=== PATIENT | male | born 1935 | race Caucasian/White ===

== ENCOUNTER → 2020-12-27 12:55 | Outpatient (BNVA) | payer MEDICARE, OTHER, SELFPAY | PROVIDERS: Visit Provider Urology | DX: N40.0 Benign prostatic hyperplasia without lower urinary tract symptoms (principal); N40.1 Benign prostatic hyperplasia with lower urinary tract symptoms; R33.9 Retention of urine, unspecified; N39.0 Urinary tract infection, site not specified | CPT/HCPCS: 51798; 99212 ==

== ENCOUNTER → 2021-07-17 09:56 | Outpatient (BNVA) | payer MEDICARE, OTHER, SELFPAY | PROVIDERS: Visit Provider Urology | DX: Z13.89 Encounter for screening for other disorder (principal) | CPT/HCPCS: Q3014 ==

== ENCOUNTER → 2022-03-12 11:58 | Outpatient (BNVA) | payer MEDICARE, OTHER, SELFPAY | PROVIDERS: PCP Preventive Medicine Public Health & General Preventive Medicine; Visit Provider Urology | DX: N39.0 Urinary tract infection, site not specified (principal); N40.0 Benign prostatic hyperplasia without lower urinary tract symptoms | CPT/HCPCS: Q3014 ==

== ENCOUNTER → 2022-09-12 10:12 | Outpatient (BNVA) | payer MEDICARE, OTHER, SELFPAY | PROVIDERS: PCP Preventive Medicine Public Health & General Preventive Medicine; Visit Provider Urology | DX: N40.1 Benign prostatic hyperplasia with lower urinary tract symptoms (principal); R33.8 Other retention of urine; N39.0 Urinary tract infection, site not specified | CPT/HCPCS: Q3014 ==

== ENCOUNTER 2023-03-24 13:16 | Outpatient (AMB) | payer MEDICARE, OTHER, SELFPAY ==
--- NOTE | 2023-03-24 13:16 | A.OFFVIS_ITS ---
Intake Intake Visit Reasons: 6m follow up Intake Note: Patient is present for Telephone follow up Urology Med: none Antibiotic Allergy: Levofloxacin Blood Thinner: Eliquis Pharmacy: [facility] Allergies amlodipine Allergy (Unknown, Verified 03/24/23 13:17) Unknown levofloxacin [Levaquin] Allergy (Unknown, Verified 03/24/23 13:17) Unknown losartan Allergy (Unknown, Verified 03/24/23 13:17) unknown cozaar Allergy (Unknown, Uncoded 03/24/23 13:17) unknown norvasc Allergy (Unknown, Uncoded 03/24/23 13:17) unknown sensitivity to med. tape Allergy (Unknown, Uncoded 03/24/23 13:17) unknown xarelto Allergy (Unknown, Uncoded 03/24/23 13:17) unknown Medication List - Last Reconciled 03/24/23 by David Greene MD allopurinol 100 mg PO DAILY apixaban (Eliquis) 5 mg PO BID methylprednisolone 4 mg PO DAILY metoprolol tartrate 25 mg PO DAILY midodrine 2.5 mg PO BID sulfamethoxazole-trimethoprim 400-80 mg (Bactrim) 1 tab PO BEDTIME 90 days torsemide 5 mg PO DAILY HPI HPI Comments History of Present Illness Details Reg is a pleasant male. He is a patient of Dr. Barbosa. 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 [facility] Medical History Bladder dysfunction BPH (benign prostatic hyperplasia) Diabetes mellitus Enlarged prostate without lower urinary tract symptoms (luts) GERD (gastroesophageal reflux disease) Hyperlipidemia Hypothyroidism Surgical History History of surgery Assessment & Plan Assessment & Plan (1) Recurrent UTI (urinary tract infection): Code(s): N39.0 - Urinary tract infection, site not specified (2) Incomplete emptying of bladder due to benign prostatic hyperplasia: Code(s): N40.1 - Benign prostatic hyperplasia with lower urinary tract symptoms; R33.9 - Retention of urine, unspecified (3) BPH (benign prostatic hyperplasia): Code(s): N40.0 - Benign prostatic hyperplasia without lower urinary tract symptoms Plan Given UTI medication to use on demand Continue suppression Medications: New cephalexin 500 mg PO BID 7 days 14 caps 0RF N39.0 - Urinary tract infection, site not specified Refilled sulfamethoxazole-trimethoprim 400-80 mg (Bactrim) 1 tab PO BEDTIME 90 days 90 tabs 1RF N39.0 - Urinary tract infection, site not specified Patient Instructions: Imaging studies, laboratory and physical exam results were discussed and reviewed in detail. No major barriers to patient understanding were identified. An opportunity to ask questions regarding the treatment plan was provided. All questions were answered. The patient expressed understanding and agreement with the above treatment plan. The patient is aware they should contact our office by phone for worsening of their current condition or the appearance of new urologic symptoms. Compliance is encouraged with any medications and followup testing that is ordered. It is a privilege to participate in the urologic care of your patient. If you have any questions or concerns regarding treatment for the above conditions, or other urologic issues, please do not hesitate to contact me. The office telephone contact is [phone]. This note is constructed using voice recognition software. While every effort has been made to ensure accuracy health services information specialist errors may have been included. Yours sincerely, Dr David Greene MD, [facility] - Urology Providers of Expert, Compassionate Care for the Genitourinary System Telehealth Telehealth Location of provider rendering services: practice address Location of patient: address on file Patient Identification confirmed using: Name, : Yes Telehealth method: video Patient verbally consented to treatment: Yes Patient verbally consented to billing insurance company: Yes Patient informed of any privacy concerns related to visit: Yes Coding Level of Care Code Tele Est Pt Level 4 (79404) Diagnoses Recurrent UTI (urinary tract infection) N39.0 Incomplete emptying of bladder due to benign prostatic hyperplasia N40.1; R33.9 BPH (benign prostatic hyperplasia) N40.0
== END 2023-03-24 16:08 | disposition home or self-care (01) ==
LOC: HO.HUSH 13:16
PROVIDERS: PCP Preventive Medicine Public Health & General Preventive Medicine; Visit Provider Urology
DX: N39.0 Urinary tract infection, site not specified (principal); N40.1 Benign prostatic hyperplasia with lower urinary tract symptoms; R33.9 Retention of urine, unspecified; N40.0 Benign prostatic hyperplasia without lower urinary tract symptoms
CPT/HCPCS: 99214

== ENCOUNTER → 2023-03-24 13:16 | Outpatient (BNVA) | payer MEDICARE, OTHER, SELFPAY | PROVIDERS: PCP Preventive Medicine Public Health & General Preventive Medicine; Visit Provider Urology ==

== ENCOUNTER 2023-06-24 15:04 | Outpatient (AMB) | payer MEDICARE, OTHER, SELFPAY ==
--- NOTE | 2023-06-24 15:04 | MHC.OFFVIS ---
Intake Intake Visit Reasons: Med review- follow up Intake Note: Patient is Present for Telephone Follow Up For Urology Med: None Antibiotic Allergy: Levofloxacin, Blood Thinner: Eliquis Allergies amlodipine Allergy (Unknown, Verified 06/24/23 15:05) Unknown levofloxacin [Levaquin] Allergy (Unknown, Verified 06/24/23 15:05) Unknown losartan Allergy (Unknown, Verified 06/24/23 15:05) unknown cozaar Allergy (Unknown, Uncoded 06/24/23 15:05) unknown norvasc Allergy (Unknown, Uncoded 06/24/23 15:05) unknown sensitivity to med. tape Allergy (Unknown, Uncoded 06/24/23 15:05) unknown xarelto Allergy (Unknown, Uncoded 06/24/23 15:05) unknown Medication List - Last Reconciled 06/24/23 by David Greene MD allopurinol 100 mg PO DAILY apixaban (Eliquis) 5 mg PO BID cephalexin 500 mg PO BID 7 days methylprednisolone 4 mg PO DAILY metoprolol tartrate 25 mg PO DAILY midodrine 2.5 mg PO BID sulfamethoxazole-trimethoprim 400-80 mg (Bactrim) 1 tab PO BEDTIME 90 days torsemide 5 mg PO DAILY HPI HPI Comments History of Present Illness Details Reg is a pleasant male. He is a patient of Dr. Barbosa. He is seen for the following urologic conditions - BPH - recurring UTI Telemedicine evaluation 15 minute consultation [employer]! toya Video attempted Discussion with daughter Encouraged fluids Has dark fluid Occasional UTI 2x in past 6 months Uses daily Bactrim suppression Did respond well to Keflex when in [place] He is difficult to transport and they live in [place] so his prefers a tele visit when possible Lower urinary tract symptoms - detrusor hyperactivity with impaired contractility Prior laser prostatectomy Has been on Bactrim suppression due to constant 200 cc postvoid residual Postvoid residual in line with prior numbers Uses tropsium when they travel for urge frequency Has done well the last 6 months Continue to follow Prescriptions provided They split time between [place] and [place]. [facility] Medical History BPH (benign prostatic hyperplasia) Bladder dysfunction GERD (gastroesophageal reflux disease) Hypothyroidism Hyperlipidemia Diabetes mellitus Enlarged prostate without lower urinary tract symptoms (luts) Surgical History History of surgery Review of Systems Const All systems reviewed & are unremarkable except as noted in HPI and below Reports no additional complaints Resp Reports no additional complaints GI Reports no additional complaints Reports as per HPI Musc Reports no additional complaints Physical Exam Telemedicine evaluation Appropriate responses Regular breathing rate and rhythm HEENT Head: Yes normal to inspection Ears: hearing grossly normal bilaterally Eyes General: appearance normal, both eyes and all related structures Neck Neck: Yes normal visual inspection Chest Chest palpation & inspection: normal inspection of the chest Resp Effort & Inspection: normal respiratory effort and able to speak in complete sentences Assessment & Plan Assessment & Plan (1) Recurrent UTI (urinary tract infection): Code(s): N39.0 - Urinary tract infection, site not specified (2) BPH (benign prostatic hyperplasia): Code(s): N40.0 - Benign prostatic hyperplasia without lower urinary tract symptoms Qualifiers: Lower urinary tract symptom presence: symptoms present Lower urinary tract symptom detail: urinary obstruction Qualified Code(s): N40.1 - Benign prostatic hyperplasia with lower urinary tract symptoms; N13.8 - Other obstructive and reflux uropathy (3) Incomplete emptying of bladder due to benign prostatic hyperplasia: Code(s): N40.1 - Benign prostatic hyperplasia with lower urinary tract symptoms; R33.9 - Retention of urine, unspecified Plan 6 month f/u Patient Instructions: Imaging studies, laboratory and physical exam results were discussed and reviewed in detail. No major barriers to patient understanding were identified. An opportunity to ask questions regarding the treatment plan was provided. All questions were answered. The patient expressed understanding and agreement with the above treatment plan. The patient is aware they should contact our office by phone for worsening of their current condition or the appearance of new urologic symptoms. Compliance is encouraged with any medications and followup testing that is ordered. It is a privilege to participate in the urologic care of your patient. If you have any questions or concerns regarding treatment for the above conditions, or other urologic issues, please do not hesitate to contact me. The office telephone contact is [phone]. This note is constructed using voice recognition software. While every effort has been made to ensure accuracy associate juvenile court judge errors may have been included. Yours sincerely, Dr David Greene MD, [facility] - Urology Providers of Expert, Compassionate Care for the Genitourinary System Telehealth Telehealth Location of provider rendering services: practice address Location of patient: address on file Patient Identification confirmed using: Name, : Yes Telehealth method: video Patient verbally consented to treatment: Yes Patient verbally consented to billing insurance company: Yes Patient informed of any privacy concerns related to visit: Yes Coding Level of Care Code Tele Est Pt Level 3 (35696) Diagnoses Recurrent UTI (urinary tract infection) N39.0 Benign prostatic hyperplasia with urinary obstruction N40.1; N13.8 Lower urinary tract symptom presence: symptoms present Lower urinary tract symptom detail: urinary obstruction Incomplete emptying of bladder due to benign prostatic hyperplasia N40.1; R33.9
== END 2023-06-24 15:50 | disposition home or self-care (01) ==
LOC: HO.HUSH 15:04
PROVIDERS: PCP Preventive Medicine Public Health & General Preventive Medicine; Visit Provider Urology
DX: N39.0 Urinary tract infection, site not specified (principal); N40.1 Benign prostatic hyperplasia with lower urinary tract symptoms; N13.8 Other obstructive and reflux uropathy; R33.9 Retention of urine, unspecified
CPT/HCPCS: 99213

== ENCOUNTER → 2023-06-24 15:04 | Outpatient (BNVA) | payer MEDICARE, OTHER, SELFPAY | PROVIDERS: PCP Preventive Medicine Public Health & General Preventive Medicine; Visit Provider Urology ==

== ENCOUNTER 2024-01-15 11:09 | Outpatient (AMB) | payer MEDICARE, OTHER, SELFPAY ==
--- NOTE | 2024-01-15 11:10 | MHC.OFFVIS ---
Intake Visit Reasons: 6m follow up Intake Note: Patient is Present for Telephone Follow Up For Urology Med: Bactrim Daily Antibiotic Allergy: Levofloxacin Blood Thinner:Eliquis Allergies amlodipine Allergy (Unknown, Verified 01/15/24 11:11) Unknown levofloxacin [Levaquin] Allergy (Unknown, Verified 01/15/24 11:11) Unknown losartan Allergy (Unknown, Verified 01/15/24 11:11) unknown cozaar Allergy (Unknown, Uncoded 01/15/24 11:11) unknown norvasc Allergy (Unknown, Uncoded 01/15/24 11:11) unknown sensitivity to med. tape Allergy (Unknown, Uncoded 01/15/24 11:11) unknown xarelto Allergy (Unknown, Uncoded 01/15/24 11:11) unknown Medication List - Last Reconciled 01/15/24 by David Greene MD allopurinol 100 mg PO DAILY apixaban (Eliquis) 5 mg PO BID methylprednisolone 4 mg PO DAILY metoprolol tartrate 25 mg PO DAILY midodrine 2.5 mg PO BID sulfamethoxazole-trimethoprim 400-80 mg (Bactrim) 1 tab PO BEDTIME 90 days torsemide 10 mg PO DAILY HPI Comments Details: Reg is a pleasant male. He is a patient of Dr. Barbosa. He is seen for the following urologic conditions - BPH - recurring UTI - baseline diabetes Telemedicine evaluation 15 minute consultation [employer] toya Video Discussion with daughter Had none healing diabetic ulcer with infection Occasional UTI 2x in past 6 months Uses daily Bactrim suppression Did respond well to Keflex when in [place] He is difficult to transport and they live in [place] so his prefers a tele visit when possible On midodrine for orthostatic hypotension Lower urinary tract symptoms - detrusor hyperactivity with impaired contractility Prior laser prostatectomy Has been on Bactrim suppression due to constant 200 cc postvoid residual Postvoid residual in line with prior numbers Uses tropsium when they travel for urge frequency Has done well the last 6 months Continue to follow Prescriptions provided They split time between [place] and [place]. [facility] Medical History BPH (benign prostatic hyperplasia) Bladder dysfunction GERD (gastroesophageal reflux disease) Hypothyroidism Hyperlipidemia Diabetes mellitus Enlarged prostate without lower urinary tract symptoms (luts) Surgical History History of surgery Telehealth Telehealth Telehealth [facility] Location of provider rendering services: practice address Location of patient: address on file Patient Identification confirmed using: Name, : Yes Telehealth method: video Patient verbally consented to treatment: Yes Patient verbally consented to billing insurance company: Yes Patient informed of any privacy concerns related to visit: Yes Minutes spent on Phone/Video with Pt.: 15 Assessment & Plan Assessment & Plan (1) Recurrent UTI (urinary tract infection): Code(s): N39.0 - Urinary tract infection, site not specified Category: Medical (2) Incomplete emptying of bladder due to benign prostatic hyperplasia: Code(s): N40.1 - Benign prostatic hyperplasia with lower urinary tract symptoms; R33.9 - Retention of urine, unspecified Category: Medical (3) BPH (benign prostatic hyperplasia): Code(s): N40.0 - Benign prostatic hyperplasia without lower urinary tract symptoms Category: Medical Qualifiers: Lower urinary tract symptom presence: symptoms present Lower urinary tract symptom detail: urinary obstruction Qualified Code(s): N40.1 - Benign prostatic hyperplasia with lower urinary tract symptoms; N13.8 - Other obstructive and reflux uropathy Plan Start vitamin-C Refill Bactrim Six-month follow-up Medications: New ascorbic acid (vitamin C) 1 g PO DAILY 90 days 90 tabs 1RF N39.0 - Urinary tract infection, site not specified Refilled sulfamethoxazole-trimethoprim 400-80 mg (Bactrim) 1 tab PO BEDTIME 90 days 90 tabs 1RF N39.0 - Urinary tract infection, site not specified Patient Instructions: Imaging studies, laboratory and physical exam results were discussed and reviewed in detail. No major barriers to patient understanding were identified. An opportunity to ask questions regarding the treatment plan was provided. All questions were answered. The patient expressed understanding and agreement with the above treatment plan. The patient is aware they should contact our office by phone for worsening of their current condition or the appearance of new urologic symptoms. Compliance is encouraged with any medications and followup testing that is ordered. It is a privilege to participate in the urologic care of your patient. If you have any questions or concerns regarding treatment for the above conditions, or other urologic issues, please do not hesitate to contact me. The office telephone contact is [phone]. This note is constructed using voice recognition software. While every effort has been made to ensure accuracy guest service aide errors may have been included. Yours sincerely, Dr David Greene MD, [facility] - Urology Providers of Expert, Compassionate Care for the Genitourinary System Coding Level of Care Code Tele Est Pt Level 4 (55024) Diagnoses Recurrent UTI (urinary tract infection) N39.0 Incomplete emptying of bladder due to benign prostatic hyperplasia N40.1; R33.9 Benign prostatic hyperplasia with urinary obstruction N40.1; N13.8 Lower urinary tract symptom presence: symptoms present Lower urinary tract symptom detail: urinary obstruction
== END 2024-01-15 11:50 | disposition home or self-care (01) ==
LOC: HO.HUSH 11:09
PROVIDERS: PCP Preventive Medicine Public Health & General Preventive Medicine; Visit Provider Urology
DX: N39.0 Urinary tract infection, site not specified (principal); N40.1 Benign prostatic hyperplasia with lower urinary tract symptoms; R33.9 Retention of urine, unspecified; N13.8 Other obstructive and reflux uropathy
CPT/HCPCS: 99213

== ENCOUNTER → 2024-01-15 11:09 | Outpatient (BNVA) | payer MEDICARE, OTHER, SELFPAY | PROVIDERS: PCP Preventive Medicine Public Health & General Preventive Medicine; Visit Provider Urology ==

== ENCOUNTER 2024-07-22 11:24 | Outpatient (AMB) | payer MEDICARE, OTHER, SELFPAY ==
--- OUTSIDE RECORDS SUMMARY | 2024-07-22 11:26 | XMS_ITS | Patient Health Record ---
Author Organization [facility] Address [address] [place] [address] Care Team Providers Care Process Controls Technician Name Role Phone Demar Medley Primary Care Provider Allergies Allergen (clinical drug ingredient) Drug/Non Drug Allergy documented on EMR Reaction Allergy Type Onset Date Status amlodipine Amlodipine Besylate Unknown Drug Allergy Active Levaquin Unknown Drug Allergy Active losartan Losartan Potassium Unknown Drug Allergy Active carbamazepine Tegretol Unknown Drug Allergy Act madhuri Reason For Referral No Information Medications Medication SIG (Take, Route, Frequency, Duration) Notes Start Date End Date Status Bactrim 400-80 MG 1 tablet Orally Once a day for 90 days Not-Taking Hydrocortisone-Iodoq uinol 1-1 % 1 application Externally Once a day Active Doxycycline Hyclate 100 MG 1 tablet Orally Once a day for 10 day(s) 11/22/2021 Not-Taking Midodrine HCl 2.5 MG 1 tablet Orally Two times a day Active Pen [place] 29G X 12MM as directed Not-Taking Basaglar KwikPen 100 UNIT/ML 15 units Subcutaneous daily per insurance Active Allopurinol 100 MG 1 tablet Orally Once a day Active Famotidine 10 MG 1 tablet at bedtime as needed Orally Once a day Not-Taking CoQ-10 Active Vitamin D3 25 MCG (1000 UT) 1 capsule Orally Once a day Active Terbinafine HCl 1 % 1 application Externally Once a day Active Aspirin 81 MG 1 tablet Orally Once a day Not-Taking Eliquis 5 MG 1 tablet Orally Twice a day Active Folic Acid 1 MG 1 tablet Orally Once a day Active Medrol 4 MG 1 tablet with food or milk Orally Once a day Active HumaLOG KwikPen 100 UNIT/ML 12 UNITS PER SLIDING SCALE Subcutaneous before each meal for 30 days Active Torsemide 20 MG 1 tablet Orally Once a day for 90 days Active Levothyroxine Sodium 75 MCG TAKE ONE TABLET BY MOUTH Orally four days a week for 90 days Active Torsemide 10 MG 1 tablet Orally Once a day for 90 days 09/29/2022 Active MiraLax 17 GM/SCOOP as directed Orally Active Lantus SoloStar 100 UNIT/ML 15 units Subcutaneous daily for 90 days Not-Taking Atorvastatin Calcium 10 MG 1 tablet Orally Once a day Active Plavix 75 MG 1 tablet Orally Once a day Not-Taking Methotrexate 25 MG/ML 6 ml Subcutaneous every week for 90 days Active Trospium Chloride 20 MG 1 tablet Orally Once a day for 30 day(s) uses it for travel Active Benzonatate 100 MG 1 capsule as needed Orally Three times a day for 21 days 09/29/2022 Active Metoprolol Tartrate 25 MG 1/2 tablet with food Orally Twice a day Active traMADol HCl 50 mg one tab orally every 4-6 hours prn pain Not-Taking Zithromax Z-Colin 250 MG 2 tablets on the first day, then 1 tablet daily for 4 days Orally as directed for 5 day(s) 09/01/2022 Not-Taking Problems Problem Type SNOMED Code ICD Code Onset Dates Problem Status W/U Status Risk Notes Problem Irritable bowel syndrome (06194754) Irritable bowel syndrome (564.1) 2012 Inactive confirmed Problem Diarrhea (57949054) Diarrhea (787.91) 2012 Inactive confirmed Problem Neoplasm of uncertain behavior of bladder (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) 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 Inactive confirmed Problem 943687407 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) Active confirmed on Eliquis for DVT and PE, currently no stop date, followed by [facility] in [place], monitor Problem 309839712 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) Active confirmed on his arms, due to ASA and Eliquis, monitor Problem Hypothyroidism (83511796) Hypothyroidism, unspecified (E03.9) 2014 Active confirmed Monitor TSH on levothyroxine Problem Episode of depression (finding) (595566126) Other depressive episodes (F32.8) 2015 Inactive confirmed Problem Moderate recurrent major depression (19553314) Major depressive disorder, recurrent, moderate (F33.1) 2015 Active confirmed Problem Transient ischemic attack (315949339) Other transient cerebral ischemic attacks and related syndromes (G45.8) 2018 Active confirmed Problem Insomnia (437368362) Insomnia, unspecified (G47.00) 2015 Active confirmed Problem Cerebrovascular disease (87858659) Cerebrovascular disease, unspecified (I67.9) 2015 Active confirmed Problem 858060067 Chronic respiratory failure with hypoxia (J96.11) Active confirmed Diagnosed with and treated for PE in January 2022, currently on 2 L/min qhs, no other meds Problem Gastritis (9036987) Other gastritis without bleeding (K29.60) 2014 Inactive confirmed Problem Irritable bowel syndrome with diarrhea (170650719) Irritable bowel syndrome with diarrhea (K58.0) 2017 Inactive confirmed Problem Giant cell arteritis (793159330) Other giant cell arteritis (M31.6) 2014 Inactive confirmed Problem Degeneration of lumbar intervertebral disc (98383100) Other intervertebral disc degeneration, lumbar region (M51.36) 2015 Active confirmed Problem Cervicalgia (48877986) Cervicalgia (M54.2) 2015 Inactive confirmed Problem Low back pain (165824925) Low back pain (M54.5) 2015 Inactive confirmed Problem Nontraumatic rupture of muscle or tendon structure of rotator cuff of left shoulder (disorder) (8601821741869169 ) Unspecified rotator cuff tear or rupture of left shoulder, not specified as traumatic (M75.102) 2018 Active confirmed Problem Pain in limb (99761040) Pain in leg, unspecified (M79.606) 2018 Active confirmed Problem Pain in limb (10040611) Pain in right finger(s) (M79.644) 2017 Inactive confirmed Problem Pain in right foot (837217999317185) Pain in right foot (M79.671) Active confirmed ? gout vs pseudogout vs plantar fasciitis - just had labs done with his lion trainer will send report to office and check to see uric acid was done - Depo Medrol shot today and instructions to adjust insulin if glucose increases - advised cold therapy and follow up with podiatry if no improvement Problem Overactive bladder (133058236) Overactive bladder (N32.81) 2014 Inactive confirmed Problem Urinary tract infectious disease (48923883) Urinary tract infection, site not specified (N39.0) 2019 Active confirmed Problem Abdominal pain (03255408) Unspecified abdominal pain (R10.9) 2016 Inactive confirmed Problem Symptomatic disorders of the gastrointestinal tract (861775774) Other specified symptoms and signs involving the digestive system and abdomen (R19.8) 2015 Inactive confirmed Problem Dysuria (34300485) Dysuria (R30.0) 2017 Inactive confirmed Problem Frequency of micturition (521145039) Frequency of micturition (R35.0) 2017 Inactive confirmed Problem Altered mental status (598642829) Altered mental status, unspecified (R41.82) 2015 Problem resolved confirmed Problem Dizziness and giddiness (355150247) Dizziness and giddiness (R42) 2015 Inactive confirmed Problem Headache (41530732) Headache (R51) 2015 Inactive confirmed Problem Weakness (34598867) Weakness (R53.1) 2017 Inactive confirmed Problem Fatigue (02054951) Other fatigue (R53.83) 2018 Inactive confirmed Problem Localized edema (957077847) Localized edema (R60.0) 2019 Active confirmed Problem 486495076 Adverse effect of glucocorticoids and synthetic analogues, initial encounter (T38.0X5A) Active confirmed LT steroid use with IDDM, Cataract, bone density loss. Followed by Rheum Problem Adult health examination (290732009) Encounter for general adult medical examination without abnormal findings (Z00.00) 2017 Active confirmed Problem Problem, abnormal examination (81590806) Encounter for general adult medical examination with abnormal findings (Z00.01) 2018 Active confirmed Problem Preoperative cardiovascular examination (826626250) Encounter for preprocedural cardiovascular examination (Z01.810) 2016 Active confirmed Problem Body mass index 25-29 - overweight (228002034) Body mass index (BMI) 27.0-27.9, adult (Z68.27) 2017 Active confirmed Problem Body mass index 25-29 - overweight (432444888) Body mass index (BMI) 28.0-28.9, adult (Z68.28) 2017 Active confirmed Problem BMI 25-29 - overweight (172302275) Body mass index (BMI) 29.0-29.9, adult (Z68.29) 2017 Active confirmed Problem Body mass index 30+ - obesity (765788180) Body mass index (BMI) 30.0-30.9, adult (Z68.30) 2016 Active confirmed Problem 873720641 terminologist (current) use of insulin (Z79.4) Active confirmed On basal/bolus insulin Problem 270592054603498 skilled nursing (current) use of systemic steroids (Z79.52) Active confirmed for PMR, followed by Rheum Problem History of urinary tract infection (3896792093501) Personal history of urinary (tract) infections (Z87.440) Active confirmed Monitor urine cultures Problem Hyperglycemia due to type 2 diabetes mellitus (152640864817902) Type 2 diabetes mellitus with hyperglycemia (E11.65) 2016 Active confirmed Problem 78047884 Type 2 diabetes mellitus with other specified complication (E11.69) Active confirmed On Insulin; Associated with hyperlipidemia - continue statin therapy Problem Essential hypertension (14109128) Essential (primary) hypertension (I10) 2014 Active confirmed Problem Supraventricular tachycardia (2371736) Supraventricula r tachycardia (I47.1) 2016 Problem resolved confirmed Problem 94881319 Multiple subsegmental pulmonary emboli without acute cor pulmonale (I26.94) Active confirmed Hospitalized January 2022, on 2 L/min home O2 qhs only, Roddy Landin took him off Plavix while on- remains on ASA 81 Problem 996885114 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 1. Tolerance 2. Taking for longer than intended 3. Unable to discontinue 4. Pt feels it is needed and can't live without it. Rx- check eFORCSE, encourage lowest effective dose Problem 869814014 BMI 26.0-26.9,adult (Z68.26) Active confirmed Problem 255777426408 Oxygen dependent (Z99.81) Active confirmed Diagnosed with and treated for PE in January 2022, currently on 2 L/min qhs, no other meds Problem 36013884 Dysphagia, unspecified type (R13.10) Active confirmed being Txt'ed u [place], did a Swallow study and seeing ST Problem 56518669 Unsteady gait when walking (R26.81) Active confirmed uses Cane, may have some Parkinsonism? but not interetsedin Neuro eval and another med Problem 44364862 Aortic valve stenosis, etiology of cardiac valve disease unspecified (I35.0) Active confirmed With multiple episodes of syncope (most recently January 2022), planned TAVR 05/26/[address] York, on [facility], 08/2022 Echo shows Mild , Cath in [place] 05/2022 showed mild/ mod - no sx intervention- monitor w Echo Problem Weight gain (865269779) WEIGHT GAIN (R63.5) Active confirmed Problem 133169770 TEMPORAL ARTERITIS (M31.6) Active confirmed on chronic prednisone, mtx Problem 765958195 SCHATZKI'S RING (K22.2) Active confirmed Schatzki ring on barium swallow study 01/22/2022, not a candidate for esophageal dilation at this time, treating with Pepcid Problem Gout (90679497) Gout, unspecified (860869359) (M10.9) 2014 Active confirmed Problem Polymyalgia rheumatica (55576484) Polymyalgia rheumatica (06134950) (M35.3) 2014 Active confirmed on Chronic steroid Rx, followed by Rheum Problem Urinary incontinence (094538813) Other specified urinary incontinence (N39.49) 2018 Inactive confirmed Problem Mixed hyperlipidemia (515711698) Mixed hyperlipidemia (074957881) (E78.2) 2014 Active confirmed associated w DM. Rx- Monitor lipids/LFTs on statin Problem Esophagitis (disorder) (64678092) Esophagitis (disorder) (530.10) 2014 Inactive confirmed Problem General examination of patient (389809842) Routine general medical exam at health care facility (V70.0) 2013 Inactive confirmed Problem Elevated blood pressure reading without diagnosis of hypertension (situation) (302066527) Elevated blood pressure reading without diagnosis of hypertension (situation) (796.2) 2013 Inactive confirmed Problem Blepharoconjuncti vitis (27562227) Blepharoconjunc tivitis (H10.5) 2017 Inactive confirmed Problem Type II diabetes mellitus uncontrolled (478174518) DM Type II (250.02) 2012 Inactive confirmed Problem 0836095 Discoloration of skin of toe (L81.9) Active confirmed not ischemic, appears shoe is rubbing the area, refer POD Problem Chronic cough (86913368) Chronic cough (786.2) 2012 Inactive confirmed Problem 480171928 Wound of left buttock, initial encounter (S31.829A) Active confirmed fu [facility] wound ctr Problem 684574860 Blister of right heel, subsequent encounter (S90.821D) Active confirmed fu [facility] wound ctr Plan Of Treatment Pending Test Test Name Order Date COMPREHENSIVE METABOLIC PANEL (80383) CBC (INCLUDES DIFF/PLT) (6399) 3 C-REACTIVE PROTEIN (4420) 09/29/2022 HEMOGLOBIN A1c (496) 09/29/2022 TSH W/REFLEX TO FT4 (29209) 09/29/2022 Future Test Test Name Order Date COMPREHENSIVE METABOLIC PANEL (62292) CBC (INCLUDES DIFF/PLT) (6399) 2 HEMOGLOBIN A1c (496) 11/15/2021 Ultrasound : Doppler : Veins Leg Left X ray : Chest (PA lateral) 09/16/2022 Insurance Providers Payer Name Payer Address Payer Phone Subscriber Number Group Number Insured Name Patient Relationship to Insured Coverage Start Date Coverage End Date [place]ICARE [place] [address] [address] NIRAV CHOU [id number] JANA ASTORGA Self - patient is the insured 2 0 waygum [address] [place] [phone] [id number] JANA ASTORGA Self - patient is the insured 8 0 Medications Administered Medication Instructions Date of Administration Dosage Notes Methylprednisolone 80mg 08/22/2021 80 mg Medical (General) History Medical History History ICD Code HTN DM Type II secondary to Prednisone Thyroid hypo Irritable Bowel Syndrome Hyperactive Bladder Chronic Low Back Pain Gout Temporal Arteritis polymyalgia rheumatica Altered mental status, unspecified (reso lved ) undefined Supraventricular tachycardia (resolved ) Pulmonary embolism (January 2022) Schatzki ring (January 2022) Hiatal hernia (January 2022) Surgical History Surgery Date(Month/Year) Pain Mgmt Ablation for Low Back Pain TURP Hernia Hospitalization History Reason Date(Month/Year) Syncope and pulmonary embolism 2021
--- OUTSIDE RECORDS SUMMARY | 2024-07-22 11:26 | XMS_ITS | Clinical Summary ---
Author Organization Unknown Care Team Providers Care Operations Supervisor Chemical Cleaning Name Role Phone EDGARJAN JOSSELYN, DAVID Unavailable Unava nelda WILSON RN, KAMRAN Unavailable Unavailable ANGEL PT, JULIA Unavailable Unavailable FRIGOJoyce OT, MINH Unavailable Unavailable Payers Payer Name Policy Type Policy Number Effective Date Expira tion Date MEDICARE.NGS.PDGM [id number] Problems Condition Name Condition Details Condition Category Status Onset Date Resolution Date Last Treatment Date Treating Clinician Comments METABOLIC ENCEPHALOPAT HY Active 03-05 00:00: 00 POLYMYALGIA RHEUMATICA Active 03-05 00:00: 00 TYPE 2 DIABETES W DIABETIC PERIPHERAL ANGIOPATH W/O GANGRENE Active 03-05 00:00: 00 UNSPECIFIED DIASTOLIC (CONGESTIVE) HEART FAILURE Active 03-05 00:00: 00 VENOUS INSUFFICIENC Y (CHRONIC) (PERIPHERAL) Active 03-05 00:00: 00 PLEURAL EFFUSION, NOT ELSEWHERE CLASSIFIED Active 03-05 00:00: 00 ORTHOSTATIC HYPOTENSION Active 03-05 00:00: 00 ALZHEIMER'S DISEASE, UNSPECIFIED Active 03-05 00:00: 00 DEM IN OTH DIS CLASSD ELSWHR,UNSP SEV,W/O BEH/PSYCH/MO OD/ANX Active 03-05 00:00: 00 HYPOTHYROIDI SM, UNSPECIFIED Active 03-05 00:00: 00 GOUT, UNSPECIFIED Active 03-05 00:00: 00 SPONDYLOSIS W/O MYELOPATHY OR RADICULOPATH Y, CERVICAL REGION Active 03-05 00:00: 00 LOW BACK PAIN, UNSPECIFIED Active 03-05 00:00: 00 OTHER CHRONIC PAIN Active 03-05 00:00: 00 NONRHEUMATIC AORTIC (VALVE) STENOSIS Active 03-05 00:00: 00 OTHER SPECIFIED ANXIETY DISORDERS Active 03-05 00:00: 00 Irritable bowel syndrome, unspecified Active 03-05 00:00: 00 HYPERLIPIDEM IA, UNSPECIFIED Active 03-05 00:00: 00 GASTRO-ESOPH AGEAL REFLUX DISEASE WITHOUT ESOPHAGITIS Active 03-05 00:00: 00 PRSNL HX OF TIA (TIA), AND CEREB INFRC W/O RESID DEFICITS Active 03-05 00:00: 00 HISTORY OF FALLING Active 03-05 00:00: 00 Allergies, Adverse Reactions, Alerts Allergy Name Allergy Type Status Severity Reaction(s) Onset Date Inactive Date Treating Clinician Comments AMLODIPINE Propensity to adverse reactions Active 03-04 10:21: 05 QUINOLONES Propensity to adverse reactions Active 03-04 10:21: 31 .LISINOPRIL Propensity to adverse reactions Active 03-04 10:22: 17 RIVAROXABAN Propensity to adverse reactions Active 03-04 10:23: 21 Medications Ordered Medication Name Filled Medication Name Start Date Stop Date Current Medication? Ordering Clinician Indication Dosage Frequency Signature (SIG) Comments Components allopurinol 100 mg tablet 03-03 00:00: 00 Yes [id number] GOUT 1 tablet DAILY 1 tablet DAILY (route: oral) Med Classific ation: Gout and Hyperuric emia Therapy levothyroxi ne 75 mcg tablet 03-03 00:00: 00 Yes [id number] THYROID 1 tablet DAILY 1 tablet DAILY (route: oral) Med Classific ation: Endocrine methotrexat e sodium 25 mg/mL injection solution 03-03 00:00: 00 Yes [id number] ANTIMFLAMMA TORY 0.6 mL WEEKLY 0.6 mL WEEKLY (route: injection) Med Classific ation: Antineopl astics methylpredn isolone 4 mg tablet 03-03 00:00: 00 03-05 00:00 :00 No [id number] Per instruc tions Per instructio ns (route: oral) Med Classific ation: Endocrine mupirocin 2 % topical ointment 02-05 00:00: 00 Yes [id number] PRN RASH 2 inch DAILY 2 inch DAILY (route: topical) Med Classific ation: Dermatolo gical folic acid 1 mg tablet 03-05 00:00: 00 Yes [id number] SUPPLEMENTA L 1 tablet DAILY 1 tablet DAILY (route: oral) Med Classific ation: Electroly te Balance-N utritiona l Products Medrol 4 mg tablet 03-05 00:00: 00 Yes [id number] STERIOD 1 tablet DAILY 1 tablet DAILY (route: oral) Med Classific ation: Endocrine metoprolol tartrate 25 mg tablet 03-05 00:00: 00 Yes [id number] BP .5 tablet 2 TIMES DAILY .5 tablet 2 TIMES DAILY (route: oral) Med Classific ation: Cardiovas cular Therapy Agents midodrine 2.5 mg tablet 03-05 00:00: 00 Yes [id number] BP 1 tablet 2 TIMES DAILY 1 tablet 2 TIMES DAILY (route: oral) Med Classific ation: Cardiovas cular Therapy Agents Plavix 75 mg tablet 03-05 00:00: 00 Yes [id number] ANTICOAGULA NT 1 tablet DAILY 1 tablet DAILY (route: oral) Med Classific ation: Hematolog ical Agents sulfamethox azole 400 mg-trimetho prim 80 mg tablet 03-05 00:00: 00 Yes [id number] UTIS 1 tablet DAILY 1 tablet DAILY (route: oral) Med Classific ation: Anti-Infe ctive Agents torsemide 10 mg tablet 03-05 00:00: 00 Yes [id number] LASIX 1 tablet DAILY 1 tablet DAILY (route: oral) Med Classific ation: Cardiovas cular Therapy Agents Vital Signs Vital Name Observation Time Observation Value Commen ts BMI (%) 2022-03-05 10:51:00.000 26 kg/m2 Height 2022-03-05 10:51:00.000 70 [in_us] Pulse 2022-03-07 10:44:00.000 67 /min Pulse 2022-03-05 10:51:00.000 66 /min O2 Saturation (%) 2022-03-07 10:44:00.000 98 % O2 Saturation (%) 2022-03-05 10:51:00.000 94 % Respirations 2022-03-07 10:44:00.000 18 /min Respirations 2022-03-05 10:51:00.000 18 /min Weight (lbs) 2022-03-05 10:51:00.000 186 [lb_av] Systolic Blood Pressure 2022-03-07 10:44:00.000 118 mm [Hg] Systolic Blood Pressure 2022-03-05 10:51:00.000 125 mm [Hg] Diastolic Blood Pressure 2022-03-07 10:44:00.000 60 mm [Hg] Diastolic Blood Pressure 2022-03-05 10:51:00.000 60 mm [Hg] Plan of Treatment Planned Activity Planned Date Details Comments Future Scheduled Test AGENCY MAY PERFORM A RESUMPTION OF CARE VISIT FOLLOWING ANY HOSPITAL ADMISSION. PHYSICAL THERAPY TO EVALUATE, ASSESS AND MONITOR, PROVIDE SKILLED THERAPEUTIC INTERVENTION, ACTIVITY, EDUCATION, AND TRAINING TO ADDRESS: [code = AGENCY MAY PERFORM A RESUMPTION OF CARE VISIT FOLLOWING ANY HOSPITAL ADMISSION. PHYSICAL THERAPY TO EVALUATE, ASSESS AND MONITOR, PROVIDE SKILLED THERAPEUTIC INTERVENTION, ACTIVITY, EDUCATION, AND TRAINING TO ADDRESS:] Future Scheduled Test TRANSFER T RAINING (PT) [code = TRANSFER TRAINING (PT)] Future Scheduled Test GAIT TRAIN ING (PT) [code = GAIT TRAINING (PT)] Future Scheduled Test THERAPEUTI C EXERCISES (PT) [code = THERAPEUTIC EXERCISES (PT)] Future Scheduled Test PHYSICAL T HERAPY TO ASSESS AND RECORD PATIENT REPORTED WEIGHT AND NOTIFY CM / CHAINSTITCH ZIPPER SETTER FOR MD NOTIFICATION FOR SIGNS AND SYMPTOMS OF EXACERBATION (2LB WEIGHT GAIN IN 1 DAY, 5LBS IN A WEEK OR 5 LBS OVER BASELINE); [code = PHYSICAL THERAPY TO ASSESS AND RECORD PATIENT REPORTED WEIGHT AND NOTIFY CM / CHAINSTITCH ZIPPER SETTER FOR MD NOTIFICATION FOR SIGNS AND SYMPTOMS OF EXACERBATION (2LB WEIGHT GAIN IN 1 DAY, 5LBS IN A WEEK OR 5 LBS OVER BASELINE);] Future Scheduled Test PHYSICAL T HERAPY TO INSTRUCT PATIENT/CAREGIVER ON RISK FOR HOSPITALIZATION, TEACH SIGNS AND SYMPTOMS THAT PUT PATIENT AT RISK, WHEN TO NOTIFY CLINICIAN OF COMPLICATIONS/DECLINE, AND WHEN TO CALL 911. PHYSICAL THERAPY TO INSTRUCT PATIENT/CAREGIVER ON: SIGNS AND SYMPTOMS TO BE ON ALERT FOR EARLY INTERVENTION, PRIOR TO NEEDING EMERGENCY SERVICES CALL US FIRST TO KEEP SOFTWARE LICENSING EXECUTIVE SYMPTOM REPORT FOR VISIBLE REFERENCE NOTIFY CLINICIAN/PHYSICIAN FOR DECLINE IN STATUS WHEN AND HOW TO CALL HOME HEALTH AGENCY FACILITATE PHYSICIAN FOLLOW UP APPOINTMENT IDENTIFY SOCIOECONOMIC CONCERNS AND MAKE APPROPRIATE REFERRAL NEEDED [code = PHYSICAL THERAPY TO INSTRUCT PATIENT/CAREGIVER ON RISK FOR HOSPITALIZATION, TEACH SIGNS AND SYMPTOMS THAT PUT PATIENT AT RISK, WHEN TO NOTIFY CLINICIAN OF COMPLICATIONS/DECLINE, AND WHEN TO CALL 911. PHYSICAL THERAPY TO INSTRUCT PATIENT/CAREGIVER ON: SIGNS AND SYMPTOMS TO BE ON ALERT FOR EARLY INTERVENTION, PRIOR TO NEEDING EMERGENCY SERVICES CALL US FIRST TO KEEP SOFTWARE LICENSING EXECUTIVE SYMPTOM REPORT FOR VISIBLE REFERENCE NOTIFY CLINICIAN/PHYSICIAN FOR DECLINE IN STATUS WHEN AND HOW TO CALL HOME HEALTH AGENCY FACILITATE PHYSICIAN FOLLOW UP APPOINTMENT IDENTIFY SOCIOECONOMIC CONCERNS AND MAKE APPROPRIATE REFERRAL NEEDED] Goal 2022-03-12 Patient Goal - TO WALK ALEKSANDR R Goal Provider Goal - Goal Provider Goal - PT LTG: PATIENT WILL DEMONSTRATE IMPROVED TRANSFERS FROM CGA TO SUPERVISION WITH WALKER IN 3 WEEKS Goal Provider Goal - PT LTG: PATIENT WILL DEMONSTRATE IMPROVED AMBULATION FROM CGA TO SUPERVISION WITH WALKER IN 3 WEEKS PT LTG: PATIENT WILL DEMONSTRATE IMPROVED AMBULATION DISTANCE FROM 40FT TO 100FT WITH ONE TURN AND GOOD STEP LENGTH IN 3 WEEKS Goal Provider Goal - PT LTG: PATIENT WILL DEMONSTRATE INCREASED STRENGTH OF BILAT LEGS BY DEMONSTRATING INDEPENDENCE WITH HOME EXERCISE PROGRAM FROM WRITTEN HANDOUT IN 3 WEEKS Goal Provider Goal - PT GOAL: PATIENTS WEIGHT WILL REMAIN WELL CONTROLLED THROUGHOUT EPISODE OF CARE. Goal Provider Goal - PATIENT/CAREGIVER WILL VERBALIZE UNDERSTANDING OF SIGNS AND SYMPTOMS THAT PUT THE PATIENT AT RISK FOR HOSPITALIZATION, WHEN TO NOTIFY THERAPIST/NURSE OF COMPLICATIONS/DECLINE AND WHEN TO CALL 911. Reason for Visit MINIMUM ASSIST WITH TRANSFER/AMBULATION/ADLS Encounters Start Date/Time End Date/Time Encounter Type Admission Type Attending [facility] Care Facility Care Department Encounter ID Discharge Date Discharge Status Discharge Condition Discharge Reason Percent Goals Met 2022-03-05 00:00:00 2022-03-12 00:00:00 Outpatient NEW ADMISSION KAMRAN WILSON [facility] [id number] 2022-03-12 00:00:00 DISCHARGE TO HOME OR SELF CARE MINIMUM ASSIST WITH TRANSFER/A MBULATION/ ADLS HH ONLY - PER FAMILY REQUEST .00
--- OUTSIDE RECORDS SUMMARY | 2024-07-22 11:26 | XMS_ITS ---
Author Organization [facility] Address [address] [place] [address] Care Team Providers Care Expansion Joint Builder Name Role Phone Demar Medley Primary Care Provider [phone] Toni Kimble [phone] REASON FOR VISIT Refills Medications Medication SIG (Take, Route, Frequency, Duration) Notes Start Date End Date Status Lantus SoloStar 100 UNIT/ML 28 units Subcutaneous daily for 90 days Active Encounters Encounter Location Date Provider Diagnosis [facility]. [address] [place] [address] 03/17/2023 Toni Kimble Aortic valve stenosis, etiology of cardiac valve disease unspecified I35.0 Assessments Encounter Date Diagnosis (ICD Code) Assessment Notes Treatment Notes Treatment Clinical Notes Section Notes 03/17/2023 Aortic valve stenosis, etiology of cardiac valve disease unspecified (ICD-10 - I35.0) Plan Of Treatment Medication Medication Name Sig Start Date Stop Date Notes Lantus SoloStar 100 UNIT/ML 28 units Sub cutaneous daily for 90 days Progress Notes * RIZWAN JANA WDOB:[birth year] (88 yo M)Acc No.[id number]:03/17/2023 Patient:?JANA ASTORGA :1935???Age:88 Y???Sex:Male Address:[address] [place], [address] * Refills? Refill Lantus SoloStar Solution Pen-injector, 100 UNIT/ML, Subcutaneous, 5, 28 units, daily, 90 days, Refills=4 * true * Date:? Generated for Chencho mendoza/Toi/Brittanieitting on:?07/22/2024 11:26 AM EST
--- OUTSIDE RECORDS SUMMARY | 2024-07-22 11:26 | XMS_ITS ---
[facility] Organization [facility] Address [address] [place] [address] Care Team Providers Care Forepart Laster Name Role Phone Demar Medley Primary Care Provider Aaron Medley Unavailable [phone] Allergies Allergen (clinical drug ingredient) Drug/Non Drug Allergy documented on EMR Reaction Allergy Type Onset Date Status amlodipine Amlodipine Besylate Unknown Drug Allergy Active Levaquin Unknown Drug Allergy Active losartan Losartan Potassium Unknown Drug Allergy Active carbamazepine Tegretol Unknown Drug Allergy Act madhuri REASON FOR VISIT Telehealth Medications Medication SIG (Take, Route, Frequency, Duration) Notes Start Date End Date Status Hydrocortisone-Iodoq uinol 1-1 % 1 application Externally Once a day Active Midodrine HCl 2.5 MG 1 tablet Orally Two times a day Active CoQ-10 Active Vitamin D3 25 MCG (1000 UT) 1 capsule Orally Once a day Active Metoprolol Tartrate 25 MG 1/2 tablet with food Orally Twice a day Active Levothyroxine Sodium 75 MCG TAKE ONE TABLET BY MOUTH Orally four days a week for 90 days Active Atorvastatin Calcium 10 MG 1 tablet Orally Once a day Active Trospium Chloride 20 MG 1 tablet Orally Once a day for 30 day(s) uses it for travel Active Aspirin 81 MG 1 tablet Orally Once a day Not-Taking Eliquis 5 MG 1 tablet Orally Twice a day Active Bactrim 400-80 MG 1 tablet Orally Once a day for 90 days Not-Taking Doxycycline Hyclate 100 MG 1 tablet Orally Once a day for 10 day(s) 11/22/2021 Not-Taking Pen Truckee 29G X 12MM as directed Not-Taking Basaglar KwikPen 100 UNIT/ML 15 units Subcutaneous daily per insurance Active Zithromax Z-Colin 250 MG 2 tablets on the first day, then 1 tablet daily for 4 days Orally as directed for 5 day(s) 09/01/2022 Not-Taking Lantus SoloStar 100 UNIT/ML 15 units Subcutaneous daily for 90 days Not-Taking Plavix 75 MG 1 tablet Orally Once a day Not-Taking Methotrexate 25 MG/ML 6 ml Subcutaneous every week for 90 days Active Benzonatate 100 MG 1 capsule as needed Orally Three times a day for 21 days 09/29/2022 Active traMADol HCl 50 mg one tab orally every 4-6 hours prn pain Not-Taking Torsemide 20 MG 1 tablet Orally Once a day for 90 days Active Torsemide 10 MG 1 tablet Orally Once a day for 90 days 09/29/2022 Active MiraLax 17 GM/SCOOP as directed Orally Active HumaLOG KwikPen 100 UNIT/ML 12 UNITS PER SLIDING SCALE Subcutaneous before each meal for 30 days Active Terbinafine HCl 1 % 1 application Externally Once a day Active Allopurinol 100 MG 1 tablet Orally Once a day Active Famotidine 10 MG 1 tablet at bedtime as needed Orally Once a day Not-Taking Folic Acid 1 MG 1 tablet Orally Once a day Active Medrol 4 MG 1 tablet with food or milk Orally Once a day Active Problems Problem Type SNOMED Code ICD Code Onset Dates Problem Status W/U Status Risk Notes Problem [id number] Dysphagia, unspecified type (R13.10) Active confirmed [facility], did a Swallow study and seeing Encounters Encounter Location Date Provider Diagnosis [facility]. [address] [place] [address] 05/18/2023 Aaron Medley Type 2 diabetes mellitus with other specified complication E11.69 ; Dysphagia, unspecified type R13.10 and Mixed hyperlipidemia ([id number]) E78.2 Assessments Encounter Date Diagnosis (ICD Code) Assessment Notes Treatment Notes Treatment Clinical Notes Section Notes 05/18/2023 Type 2 diabetes mellitus with other specified complication (ICD-10 - E11.69) On Insulin; Associated with hyperlipidemia - continue statin therapy 05/18/2023 Dysphagia, unspecified type (ICD-10 - R13.10) [facility], did a Swallow study and seeing ST 05/18/2023 Mixed hyperlipidemia ([id number]) (ICD-10 - E78.2) associated w DM. Rx- Monitor lipids/LFTs on statin 05/18/2023 Other active listening, advice given, questions answered Plan Of Treatment Treatment Notes Assessment Notes Other active listening, ad vice given, questions answered Next Appt Details Follow Up: will contact us when she knows when they are coming back down [facility], Reason: Progress Notes * JANA ASTORGA WDOB:[birth year] (88 yo M)Acc No.[id number]:05/18/2023 Patient:?JANA ASOTRGA W Provider:?Aaron Medley, :1935???Age:88 Y???Sex:Male Devon e:05/18/2023 Address:[address] [place], [place] [address] Pcp:Demar Medley Subjective: * Chief Complaints: * ???1. Telehealth. * HPI: ???Routine F/U:? Patient wanted to have a TELEHEALTH consultation because of COVID-19 virus concerns. This visit was conducted with the use of an interactive audio and video telecommunications system ( ECW ) that permits real time communication between the patient and the provider. I introduced myself to the patient, and the patient confirmed her identity and location. I determined that, in my professional judgment, there was no impediment on the patient's ability to communicate effectively with me and that we could proceed. The patient's consent for this TELEHEALTH visit was obtained and during which I explained there are inherent limits to TELEHEALTH services including: potential technology failures that could interrupt service or treatment; that telehealth should not be used for emergency medical conditions; and potential risks associated with the privacy and security of the technology. I assessed and managed the patient as below: ?START TIME: 1141 am ?STOP TIME: 1200 pm ?Not coming down this winter. Has a primary up [place]. hurt her leg. has printer helper for the Pt. * ROS:?General / Constitutional:?Patient denies?fatigue , fever , weight gain , weight loss.?Ophthalmologic:?Patient denies?change in vision , discharge , red eye(s).?ENT:?Patient denies?decreased hearing , difficulty in swallowing , ear pain , hoarseness , nasal congestion.?Respiratory:?Patient denies?cough , shortness of breath , wheezing.?Cardiovascular:?Patient denies?chest pain , dyspnea on exertion , palpitations.?Gastrointestinal:?Difficulty swallowing?admits.?Hematology:?Patient denies?easy bleeding , easy bruising.?Genitourinary:?Patient denies?blood in the urine , frequent urination , difficulty urinating, incontinence.?Musculoskeletal:?Patient denies?back pain , joint stiffness , muscle aches.?Peripheral Vascular:?Patient denies?pain / cramping in legs after exertion , painful extremities.?Skin:?Patient denies?rash , skin lesion(s).?Neurologic:?Patient denies?balance difficulty , dizziness , headache , memory loss , seizures , tingling / numbness.?Psychiatric:?Patient denies?anxiety , depressed mood , stressors, or insomnia.? 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 * Surgical History:?Hernia , P ain Mgmt Ablation for Low Back Pain , TURP . * Hospitalization/Major Diagno stic Procedure:?Syncope and pulmonary embolism 2021. * Family History:?Father: dece ased 83 yrs, Cause of : [place].?Mother: 92 yrs, Cause of : old age.? * Social History:?Migrated Social History:?Tobacco Use: (Smoking):are you a current smoker: nonsmoker. ?Caffeine: (Level of use:):1 cup of coffee per day. ?Consultants: (Cardiology:):Dr Landin(Neurology:):Dr Le(Ophthalmology:):Dr Patel(Pain Management:):Dr Garcia(Rheumatology:):Dr Lomax(Urology:):Dr Villa. ?Drug/Alcohol: (Alcohol Note:):rare(Alcohol):Did you have a drink containing alcohol in the past year?: Yes, Points: 0, Interpretation: Negative(Drugs):Have you used any Illicit drugs in past or present time? denies. ?Health Maintenance: (COVID Vaccination):Pfizer x 3. Booster in May 2021, due for bivalent booster(Dental Exam):07/30 , due(EKG):07/30(Flu vaccine):Apr 2021, due(Hearing Test):2017(Pneumovax):Had 1 dose over 10 years ago(Shingles):2015(Vision Test):01/28, due. ?Marital: (Status:):. ?Occupation: (Status:):retired. ?Physical Activity: (Exercise Type/Frequency:):denies. * Medications:?Taking Basaglar KwikPen 100 UNIT/ML Solution Pen-injector 15 units Subcutaneous daily, Notes: per insurance, Taking Eliquis 5 MG Tablet 1 tablet Orally Twice a day, Taking Levothyroxine Sodium 75 MCG Tablet TAKE ONE TABLET BY MOUTH Orally four days a week, Taking Trospium Chloride 20 MG Tablet 1 tablet Orally Once a day, Notes: uses it for travel, Taking Atorvastatin Calcium 10 MG Tablet 1 tablet Orally Once a day, Taking Metoprolol Tartrate 25 MG Tablet 1/2 tablet with food Orally Twice a day, Taking Midodrine HCl 2.5 MG Tablet 1 tablet Orally Two times a day, Taking Hydrocortisone-Iodoquinol 1-1 % Cream 1 application Externally Once a day, Taking CoQ-10 , Taking Vitamin D3 25 MCG (1000 UT) Capsule 1 capsule Orally Once a day, Taking Allopurinol 100 MG Tablet 1 tablet Orally Once a day, Taking Folic Acid 1 MG Tablet 1 tablet Orally Once a day, Taking Medrol 4 MG Tablet 1 tablet with food or milk Orally Once a day, Taking Terbinafine HCl 1 % Cream 1 application Externally Once a day, Taking MiraLax 17 GM/SCOOP Powder as directed Orally , Taking HumaLOG KwikPen 100 UNIT/ML Solution Pen-injector 12 UNITS PER SLIDING SCALE Subcutaneous before each meal, Taking Torsemide 20 MG Tablet 1 tablet Orally Once a day, Taking Torsemide 10 MG Tablet 1 tablet Orally Once a day, Taking Methotrexate 25 MG/ML Solution Prefilled Syringe 6 ml Subcutaneous every week, Taking Benzonatate 100 MG Capsule 1 capsule as needed Orally Three times a day, Not-Taking Aspirin 81 MG Tablet Delayed Release 1 tablet Orally Once a day, Not-Taking Famotidine 10 MG Tablet 1 tablet at bedtime as needed Orally Once a day, Not-Taking Lantus SoloStar 100 UNIT/ML Solution Pen-injector 15 units Subcutaneous daily, Not-Taking Plavix 75 MG Tablet 1 tablet Orally Once a day, Not-Taking traMADol HCl 50 mg tablet one tab orally every 4-6 hours prn pain, Not-Taking Zithromax Z-Colin 250 MG Tablet 2 tablets on the first day, then 1 tablet daily for 4 days Orally as directed, Not-Taking Bactrim 400- 80 MG Tablet 1 tablet Orally Once a day, Not-Taking Doxycycline Hyclate 100 MG Tablet 1 tablet Orally Once a day, Not-Taking Pen Truckee 29G X 12MM Miscellaneous as directed , Medication List reviewed and reconciled with the patient * Allergies:?Levaquin, Tegreto l, Losartan Potassium, Amlodipine Besylate. Objective: Assessment: * Assessment: 1.?Dysphagia, unspecified ty pe - R13.10 (Primary), being Txt'ed [place], did a Swallow study and seeing ST?2.?Type 2 diabetes mellitus with other specified complication - E11.69, On Insulin; Associated with hyperlipidemia - continue statin therapy?3.?Mixed hyperlipidemia ([id number]) - E78.2, associated w DM. Rx- Monitor lipids/LFTs on statin? Plan: * Treatment: * Follow Up:? will contact us when [place] * Billing Information: * Visit Code:? 49302 Office Visit, Est Pt., Level 2. Modifiers: 95 * Procedure Codes:? * Sign off status: Completed true * Provider:?Aaron Medley DO Date:? Generated for Chencho mendoza/Toi/eTransmitting on:?07/22/2024 11:26 AM EST History and Physical Notes * HPI (History of Present Illness) Category Sub-Category Detail Notes Category Not es Routine F/U Patient wanted to have a TELEHEALTH consultation because of COVID-19 virus concerns. This visit was conducted with the use of an interactive audio and video telecommunications system ( ECW ) that permits real time communication between the patient and the provider. I introduced myself to the patient, and the patient confirmed her identity and location. I determined that, in my professional judgment, there was no impediment on the patient's ability to communicate effectively with me and that we could proceed. The patient's consent for this TELEHEALTH visit was obtained and during which I explained there are inherent limits to TELEHEALTH services including: potential technology failures that could interrupt service or treatment; that telehealth should not be used for emergency medical conditions; and potential risks associated with the privacy and security of the technology. I assessed and managed the patient as below: START TIME: 1141 am STOP TIME: 1200 pm Not coming down this winter. Has a primary up [place]. hurt her leg. has printer helper for the Pt.
--- NOTE | 2024-07-22 11:31 | MHC.OFFVIS ---
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 tape Allergy (Unknown, Uncoded 07/22/24 11:32) unknown xarelto Allergy (Unknown, Uncoded 07/22/24 11:32) unknown HPI Comments Details: Reg is a pleasant male. He is a patient of Dr. Barbosa. He is seen for the following urologic conditions - BPH - recurring UTI - baseline diabetes Telemedicine Evaluation 15 min Consultation SpeedDate Yolie Video Six-month follow-up Discussion with daughter Uses daily Bactrim suppression with vitamin C Did respond well to Keflex when in [place] Hospitalized in March with Covid. Tropsium ceased. He is difficult to transport and they live in [place] so his prefers a tele visit when possible On midodrine for orthostatic hypotension Lower urinary tract symptoms - detrusor hyperactivity with impaired contractility Prior laser prostatectomy Has been on Bactrim suppression due to constant 200 cc postvoid residual Postvoid residual in line with prior numbers Uses tropsium when they travel for urge frequency Has done well the last 6 months Continue to follow Prescriptions provided They split time between [place] and [place]. [facility] Medical History BPH (benign prostatic hyperplasia) Bladder dysfunction GERD (gastroesophageal reflux disease) Hypothyroidism Hyperlipidemia Diabetes mellitus Enlarged prostate without lower urinary tract symptoms (luts) Surgical History History of surgery Review of Systems Const All systems reviewed & are unremarkable except as noted in HPI and below Reports no additional complaints Resp Reports no additional complaints GI Reports no additional complaints Reports as per HPI Musc Reports no additional complaints Physical Exam Telemedicine evaluation Appropriate responses Regular breathing rate and rhythm HEENT Head: Yes normal to inspection Ears: hearing grossly normal bilaterally Eyes General: appearance normal, both eyes and all related structures Neck Neck: Yes normal visual inspection Chest Chest palpation & inspection: normal inspection of the chest Resp Effort & Inspection: normal respiratory effort and able to speak in complete sentences Telehealth Telehealth Telehealth Platform: [employer] Inbox Location of provider rendering services: practice address Location of patient: address on file Patient Identification confirmed using: Name, : Yes Telehealth method: video Patient verbally consented to treatment: Yes Patient verbally consented to billing insurance company: Yes Patient informed of any privacy concerns related to visit: Yes Minutes spent on Phone/Video with Pt.: 15 Assessment & Plan Assessment & Plan (1) Incomplete emptying of bladder due to benign prostatic hyperplasia: Code(s): N40.1 - Benign prostatic hyperplasia with lower urinary tract symptoms; R33.9 - Retention of urine, unspecified Category: Medical (2) Recurrent UTI (urinary tract infection): Code(s): N39.0 - Urinary tract infection, site not specified Category: Medical Plan Continue vitamin-C and Bactrim Medications: Refilled ascorbic acid (vitamin C) 1 g PO DAILY 90 days 90 tabs 1RF N39.0 - Urinary tract infection, site not specified sulfamethoxazole-trimethoprim 400-80 mg (Bactrim) 1 tab PO BEDTIME 90 days 90 tabs 1RF N39.0 - Urinary tract infection, site not specified Patient Instructions: Imaging studies, laboratory and physical exam results were discussed and reviewed in detail. No major barriers to patient understanding were identified. An opportunity to ask questions regarding the treatment plan was provided. All questions were answered. The patient expressed understanding and agreement with the above treatment plan. The patient is aware they should contact our office by phone for worsening of their current condition or the appearance of new urologic symptoms. Compliance is encouraged with any medications and followup testing that is ordered. It is a privilege to participate in the urologic care of your patient. If you have any questions or concerns regarding treatment for the above conditions, or other urologic issues, please do not hesitate to contact me. The office telephone contact is [phone]. This note is constructed using voice recognition software. While every effort has been made to ensure accuracy cut off saw operator errors may have been included. Yours sincerely, Dr David Greene MD, [facility] - Urology Providers of Expert, Compassionate Care for the Genitourinary System Coding Level of Care Code Tele Est Pt Level 3 (73130) Diagnoses Incomplete emptying of bladder due to benign prostatic hyperplasia N40.1; R33.9 Recurrent UTI (urinary tract infection) N39.0
== END 2024-07-22 15:32 | disposition home or self-care (01) ==
LOC: HO.HUSH 11:24
PROVIDERS: PCP Preventive Medicine Public Health & General Preventive Medicine; Visit Provider Urology
DX: N40.1 Benign prostatic hyperplasia with lower urinary tract symptoms (principal); R33.9 Retention of urine, unspecified; N39.0 Urinary tract infection, site not specified
CPT/HCPCS: 99213